=== PATIENT | female | born 1960 | race African-American/Black ===

== ENCOUNTER 2017-10-06 16:34 | Emergency (ER) | payer MEDICAID ==
[~2017-10-06] VITALS: Ht 167.6 cm; Wt 84.4 kg
[2017-10-06 17:02] VITALS: BP 173/82
[2017-10-06] MEDS ORDERED: Solu-MEDROL 125mg Inj IVP ONE (17:15)
[2017-10-06] MEDS ORDERED: Albuterol/Ipratropium 3ml neb HHN ONE ×3 (17:15→18:45)
[2017-10-06] MEDS ORDERED: IPRATROPIU0.2 MG/1 M HHN (19:26)
[2017-10-06] MEDS ORDERED: ALBUTEROL2.5 MG/3 M HHN (19:26)
[2017-10-06] MEDS ORDERED: PREDNISONE20 MG ORAL (19:26)
[2017-10-06 19:33] VITALS: BP 159/99
[2017-10-06 19:35] VITALS: BP 159/99
--- NOTE | 2017-10-06 22:51 | Emergency Room Report ---
History of Present Illness General Chief Complaint: Dyspnea/Respdistress Source: Patient Present Illness HPI The patient is a 57-year-old female who presented after increased difficulty breathing. Patient gradual onset of symptoms. Patient prior history of asthma. Patient reports having increased congestion for the past 3 days. She denies any fever. She had not been vomiting. She had increased nonproductive cough. Allergies: Coded Allergies: No Known Allergies (Unverified , 10/06/17) Patient History Past Medical History: see triage record Reviewed Nursing Documentation: PMH: Agreed; PSxH: Agreed Nursing Documentation-PMH Past Medical History: No History, Except For Hx Hypertension: Yes Hx Asthma: Yes Hx COPD: Yes Review of Systems All Other Systems: negative except mentioned in HPI Physical Exam Vital Signs Date Time Temp Pulse Resp B/P (MAP) Pulse Ox O2 Delivery O2 Flow Rate FiO2 10/06/17 16:52 98.1 112 20 173/82 93 Room Air 98.1 10/06/17 19:00 21 Sp02 EP Interpretation: reviewed, normal General Appearance: normal inspection, well appearing, no apparent distress, alert, GCS 15 Head: atraumatic ENT: normal ENT inspection, hearing grossly normal, normal voice Neck: normal inspection, full range of motion, supple, no bony tend Respiratory: normal inspection, no respiratory distress, no retraction, wheezing, expiration Cardiovascular #1: regular rate, rhythm, no edema Gastrointestinal: normal inspection, normal bowel sounds, non tender, soft, no guarding, no hernia Genitourinary: no CVA tenderness Musculoskeletal: normal inspection, back normal, normal range of motion Neurologic: normal inspection, alert, oriented x3, responsive, 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 Because of complexity imaging studies were ordered. Patient was given breathing treatments as well as steroids with improvement in her symptoms. The patient stated she felt better want to go home. Patient was given prescription for oral steroids as well as nebulizer solutions. The patient is advised to recheck with her primary care physician in one to 2 days. Patient is to return if she began having any worsening shortness of breath, dizziness, other concerns Last Vital Signs Date Time Temp Pulse Resp B/P (MAP) Pulse Ox O2 Delivery O2 Flow Rate FiO2 10/06/17 19:35 97.7 106 14 159/99 97 Room Air 97.7 10/06/17 19:00 21 Status: improved Disposition: HOME, SELF-CARE Condition: Stable Scripts Ipratropium [place] 0.5MG/2.5ML (IPRATROPIUM BROMIDE 0.5MG/2.5ML) 0.2 Mg/1 Ml Solution 0.5 MG HHN Q6H PRN for Shortness of Breath, #28 EA Prov: Augustus Alcantar MD 10/06/17 Albuterol Sulfate* (ALBUTEROL SULFATE HHN*) 2.5 Mg/3 Ml Vial.neb 2.5 MG HHN Q4H PRN for Shortness of Breath, #25 VIAL Prov: Augustus Alcantar MD 10/06/17 Prednisone* (PREDNISONE*) 20 Mg Tablet 60 MG ORAL DAILY, #12 TAB Prov: Augustus Alcantar MD 10/06/17 Patient Instructions: Chronic Obstructive Pulmonary Disease Exacerbation Augustus Alcantar MD October 06, 2017 22:51
--- NOTE | 2017-10-07 10:49 | Diagnostic Imaging Report ---
Indication: Dyspnea Comparison: None A single view chest radiograph was obtained. Findings: Cardiomediastinal appearance is within normal limits for age. Pulmonary vascularity is appropriate. The diaphragmatic contour is smooth and costophrenic angles are sharp. No pleural effusions are identified. The bones are unremarkable. Impression: No acute findings
--- NOTE | 2017-10-11 15:02 | Cardiology Report ---
APPROVED REPORT EKG Measurement Heart [id number] Sinus tachycardia Biatrial enlargement Abnormal ECG
== END 2017-10-06 19:35 | disposition home or self-care (01) ==
LOC: EMR 17:29
DX: J45.901 Unspecified asthma with (acute) exacerbation (principal); J44.9 Chronic obstructive pulmonary disease, unspecified; I10 Essential (primary) hypertension
CPT/HCPCS: 71045; 93005; 94640; 94664; 96374; 99284; J2930; J7620

== ENCOUNTER 2017-10-26 12:02 | Inpatient (IN) | payer MEDICAID ==
[~2017-10-26] VITALS: Ht 167.6 cm; Wt 88.0 kg
[~2017-10-26 12:02] MED LIST: ALBUTEROL2.5 MG/3 M HHN; IPRATROPIU0.2 MG/1 M HHN; PREDNISONE20 MG ORAL
[2017-10-26] MEDS ORDERED: Ipratropium 0.02% Inh Soln 2.5ml UD HHN ONE (12:15)
[2017-10-26] MEDS ORDERED: Acetaminophen 500mg (ES) tab ORAL ONE (12:15)
[2017-10-26] MEDS ORDERED: Solu-MEDROL 125mg Inj IVP ONE (12:15)
--- NOTE | 2017-10-26 12:17 | Emergency Room Report ---
History of Present Illness General Chief Complaint: Asthma Source: Patient Present Illness HPI Patient presents with severe asthma. She ran out of her inhaler however has a nebulizer at home. She's been using Atrovent without help. She had 2 breathing treatments before she came in. She denies any fever however she's been having a cough. There's been some yellow phlegm. She is using Advair discus also. This is not her worst attack. She's never been intubated. When she was here last month she almost needed to be admitted to the hospital and states she was worse than now. She complains of headache is 7/10. She has any chest pain, vomiting, diarrhea or dysuria. There is no calf swelling or pain. Allergies: Coded Allergies: No Known Allergies (Unverified , 10/06/17) Patient History Past Medical History: see triage record Social History: Denies: smoking Social History Narrative from home Reviewed Nursing Documentation: PMH: Agreed; PSxH: Agreed Nursing Documentation-PMH Past Medical History Deferred: Pt Cognitively Impaired Past Medical History: No History, Except For Hx Hypertension: Yes Hx Asthma: Yes Hx COPD: Yes Hx Cancer: Yes - breast CA; left mastectomy Review of Systems All Other Systems: negative except mentioned in HPI Physical Exam Vital Signs Date Time Temp Pulse Resp B/P (MAP) Pulse Ox O2 Delivery O2 Flow Rate FiO2 10/26/17 12:05 98.9 120 22 148/80 89 Room Air 99.0 Sp02 EP Interpretation: reviewed, abnormal - interpreted as low by me General Appearance: well appearing, no apparent distress, GCS 15 Head: normocephalic, atraumatic Eyes: bilateral eye normal inspection, bilateral eye PERRL ENT: normal pharynx, moist mucus membranes Neck: supple Respiratory: wheezing, expiration, inspiration, other - increased work of breathing Cardiovascular #1: regular rate, rhythm Cardiovascular #2: 2+ radial (R) Gastrointestinal: normal inspection, normal bowel sounds, non tender, no mass, non-distended Musculoskeletal: back normal, gait/station normal, normal range of motion, no calf tenderness, Sanjeev's Sign negative Neurologic: alert, oriented x3, grossly normal Psychiatric: mood/affect normal Skin: normal inspection, warm/dry Medical Decision Making Diagnostic Impression: Primary Impression: Asthma with status asthmaticus Qualified Codes: J45.52 - Severe persistent asthma with status asthmaticus Additional Impressions: UTI (urinary tract infection) Qualified Codes: N30.00 - Acute cystitis without hematuria Hypomagnesemia Eosinophilia ER Course The patient presents with dyspnea and wheezing after use of her own inhalers at home with a nebulizer. Differential includes pneumonia, asthma exacerbation, bronchitis, bronchospasm, PE amongst others. The patient be evaluated with an EKG, chest x-ray and labs. She'll be treated with Solu-Medrol and aggressive breathing treatments. Clinically, more bronchospasm than possible PE based on exam and history. Still wheezes after aggressive albuterol treatments. CXR clear. Labs with normal WBC but eos. Low magnesium. Pyuria. Mag given IV. Still hypoxic and wheezing. Epi and admission. Admit Dr. Cook. Laboratory Tests Test 10/26/17 12:30 10/26/17 14:45 White Blood Count 7.0 K/UL (4.8-10.8) Red Blood Count 4.62 M/UL (4.20-5.40) Hemoglobin 13.3 G/DL (12.0-16.0) Hematocrit 41.6 % (37.0-47.0) Mean Corpuscular Volume 90 FL (80-99) Mean Corpuscular Hemoglobin 28.9 PG (27.0-31.0) Mean Corpuscular Hemoglobin Concent 32.0 G/DL (32.0-36.0) Red Cell Distribution Width 13.7 % (11.6-14.8) Platelet Count 278 K/UL (150-450) Mean Platelet Volume 7.9 FL (6.5-10.1) Neutrophils (%) (Auto) 54.8 % (45.0-75.0) Lymphocytes (%) (Auto) 30.6 % (20.0-45.0) Monocytes (%) (Auto) 6.4 % (1.0-10.0) Eosinophils (%) (Auto) 6.4 % (0.0-3.0) H Basophils (%) (Auto) 1.9 % (0.0-2.0) Prothrombin Time 9.6 SEC (9.30-11.50) Prothrombin Time INR 0.9 (0.9-1.1) PTT 29 SEC (23-33) Sodium Level 141 MMOL/L (136-145) Potassium Level 3.6 MMOL/L (3.5-5.1) Chloride Level 103 MMOL/L (98-107) Carbon Dioxide Level 31 MMOL/L (21-32) Anion Gap 7 mmol/L (5-15) Blood Urea Nitrogen 9 mg/dL (7-18) Creatinine 0.8 MG/DL (0.55-1.30) Estimate Glomerular Filtration Rate > 60 mL/min (>60) Glucose Level 104 MG/DL (74-106) Calcium Level 9.5 MG/DL (8.5-10.1) Magnesium Level 1.7 MG/DL (1.8-2.4) L Total Bilirubin 0.4 MG/DL (0.2-1.0) Aspartate Amino Transferase (AST) 14 U/L (15-37) L Alanine Aminotransferase (ALT) 17 U/L (12-78) Alkaline Phosphatase 85 U/L (46-116) Troponin I 0.002 ng/mL (0.000-0.056) Pro-B-Type Natriuretic Peptide 7 pg/mL (0-125) Total Protein 7.7 G/DL (6.4-8.2) Albumin 3.3 G/DL (3.4-5.0) L Globulin 4.4 g/dL Albumin/Globulin Ratio 0.8 (1.0-2.7) L Urine Color Yellow Urine Appearance Clear Urine pH 6.5 (4.5-8.0) Urine Specific [place] 1.015 (1.005-1.035) Urine Protein 2+ (NEGATIVE) H Urine Glucose (UA) Negative (NEGATIVE) Urine Ketones Negative (NEGATIVE) Urine Occult Blood 1+ (NEGATIVE) H Urine Nitrite Negative (NEGATIVE) Urine Bilirubin Negative (NEGATIVE) Urine Urobilinogen Normal MG/DL (0.0-1.0) Urine Leukocyte Esterase 3+ (NEGATIVE) H Urine RBC Pending Urine WBC Pending Urine Squamous Epithelial Cells Pending Urine Bacteria Pending EKG Diagnostic Results Rate: tachycardiac ST Segments: no acute changes Rhythm Strip Diag. Results EP Interpretation: yes Rhythm: no PVC's, no ectopy, other - ST Chest X-Ray Diagnostic Results Chest X-Ray Diagnostic Results : Chest X-Ray Ordered: Yes # of Views/Limited/Complete: 1 View Interpretation: no consolidation, no effusion, no pneumothorax Impression: Other Electronically Signed by: Electronically signed by Refugio Mccall MD Last Vital Signs Date Time Temp Pulse Resp B/P (MAP) Pulse Ox O2 Delivery O2 Flow Rate FiO2 10/26/17 18:30 97.1 106 24 166/96 94 Room Air 21 97.1 Status: improved Disposition: ADMITTED INPATIENT Condition: Serious Refugio Mccall M.D. October 26, 2017 12:17
[2017-10-26 12:30] VITALS: BP 142/86
[2017-10-26] MEDS ORDERED: Ipratropium 0.02% Inh Soln 2.5ml UD ONE ×2 (12:41→13:32)
[2017-10-26 12:56] LABS: BASOPHILS % (AUTO) 1.9 % (0.0-2.0); EOSINOPHILS % (AUTO) 6.4 % (0.0-3.0); HEMATOCRIT 41.6 % (37.0-47.0); HEMOGLOBIN 13.3 G/DL (12.0-16.0); LYMPHOCYTES % (AUTO) 30.6 % (20.0-45.0); MEAN CORPUSCULAR VOLUME 90 FL (80-99); MONOCYTES % (AUTO) 6.4 % (1.0-10.0); NEUTROPHILS % (AUTO) 54.8 % (45.0-75.0); PLATELET COUNT 278 K/UL (150-450); RED BLOOD COUNT 4.62 M/UL (4.20-5.40); RED CELL DISTRIBUTION WIDTH 13.7 % (11.6-14.8)
[2017-10-26 13:03] LABS: INR 0.9 (0.9-1.1)
[2017-10-26 13:11] LABS: ANION GAP 7 mmol/L (5-15); BLOOD UREA NITROGEN 9 mg/dL (7-18); CALCIUM 9.5 MG/DL (8.5-10.1); CARBON DIOXIDE 31 MMOL/L (21-32); CHLORIDE 103 MMOL/L (98-107); CREATININE 0.8 MG/DL (0.55-1.30); POTASSIUM 3.6 MMOL/L (3.5-5.1); SODIUM 141 MMOL/L (136-145)
[2017-10-26 13:22] LABS: ALANINE AMINOTRANSFERASE 17 U/L (12-78); ALBUMIN 3.3 G/DL (3.4-5.0); ALBUMIN/GLOBULIN RATIO 0.8 (1.0-2.7); ALKALINE PHOSPHATASE 85 U/L (46-116); ASPARTATE AMINO TRANSFERASE 14 U/L (15-37); BILIRUBIN,TOTAL 0.4 MG/DL (0.2-1.0)
[2017-10-26] MEDS: Albuterol ud Inhalation HHN SCH ×3 (13:33→19:57)
[2017-10-26 13:41] VITALS: BP 143/88
--- NOTE | 2017-10-26 14:10 | Diagnostic Imaging Report ---
Indication: Dyspnea Comparison: 10/06/2017 A single view chest radiograph was obtained. Findings: Cardiomediastinal appearance is within normal limits for age. Pulmonary vascularity is appropriate. The diaphragmatic contour is smooth and costophrenic angles are sharp. No pleural effusions are identified. The bones are unremarkable. Impression: No acute findings
[2017-10-26] MEDS ORDERED: Albuterol ud Inhalation HHN ONE (14:45)
[2017-10-26 15:18] LABS: APPEARANCE,URINE CLEAR; BILIRUBIN, URINE NEGATIVE (NEGATIVE); GLUCOSE, URINE (UA) NEGATIVE (NEGATIVE); KETONES,URINE NEGATIVE (NEGATIVE); LEUKOCYTE ESTERASE ,URINE 3+ (NEGATIVE); NITRITE,URINE NEGATIVE (NEGATIVE); PH,URINE 6.5 (4.5-8.0); PROTEIN,URINE 2+ (NEGATIVE); UROBILINOGEN,URINE NORMAL MG/DL (0.0-1.0)
[2017-10-26 15:24] LABS: COLOR,URINE YELLOW
[2017-10-26] MEDS ORDERED: EPINEPHrine 1mg/1ml Amp IM ONE (15:45)
[2017-10-26] MEDS ORDERED: cefTRIAXone 1 GM in NS 55 ML IVPB ONE (15:45)
[2017-10-26] MEDS ORDERED: NORTRIPTYLINE H75 MG ORAL (17:20)
[2017-10-26] MEDS ORDERED: LISINOPRIL10 MG ORAL (17:20)
[2017-10-26 18:00] VITALS: BP 166/96
[2017-10-26] MEDS ORDERED: ADVAIR 100-501 EACH INH (18:51)
[2017-10-26] MEDS ORDERED: TRAZODONE HCL50 MG ORAL (18:51)
[2017-10-26] MEDS ORDERED: IBUPROFEN600 MG ORAL (18:51)
[2017-10-26 20:00] VITALS: BP 137/98
[2017-10-26] MEDS ORDERED: TraZODone 50mg tab ORAL PRN (20:30)
[2017-10-26] MEDS ORDERED: Albuterol/Ipratropium 3ml neb HHN PRN (20:30)
[2017-10-27] VITALS: BP 141/96
[2017-10-27] MEDS: Albuterol/Ipratropium 3ml neb HHN SCH ×7 (00:01→23:16)
--- NOTE | 2017-10-27 00:24 | History and Physical ---
History of Present Illness General Date patient seen: October 26, 2017 Time patient seen: 18:00 Reason for Hospitalization: Asthma Present Illness HPI 57 y/o female with a PMH of COPD and asthma presents for acute shortness of breath today. Patient was recently admitted 2-3 weeks ago for similar symptoms and was given a medrol-dose smita to finish. Patient states her asthma exacerbation resolved. However, patient states that recently she has been having productive cough with yellowish sputum, headaches, and myalgias for 4 days. Patient states that today she started having an asthma exacerbation and used her inhaler without relief. Patient was brought into the ED and was given IV mag, epinephrine, IV solumedrol, and several rounds of breathing treatments. Patient's wheezing improved but states that she continues to feel SOB. CXR was negative. Denies cp, n/v, f/c, abdominal pain. Allergies: Coded Allergies: No Known Allergies (Unverified , 10/06/17) Medication History Scheduled Fluticasone/Salmeterol (Advair 100-50 Diskus), 2 PUFFS INH DAILY, (Reported) Lisinopril* (Lisinopril*), 10 MG ORAL DAILY, (Reported) Nortriptyline Hcl (Nortriptyline Hcl), 75 MG ORAL DAILY, (Reported) Scheduled PRN Albuterol Sulfate* (Albuterol Sulfate Hhn*), 2.5 MG HHN Q4H PRN for Shortness of Breath Ibuprofen* (Motrin*), 800 MG ORAL Q8H PRN for For Pain, (Reported) Ipratropium [place] 0.5MG/2.5ML (Ipratropium [place] 0.5MG/2.5ML), 0.5 MG HHN Q6H PRN for Shortness of Breath Trazodone Hcl* (Desyrel*), 50 MG ORAL BEDTIME PRN for INSOMNIA, (Reported) Discontinued Medications Prednisone* (Prednisone*), 60 MG ORAL DAILY Discontinued Reason: Pt stopped taking med Patient History History Provided By: Patient Healthcare decision maker N Resuscitation status Full Code Advanced Directive on File Review of Systems All Other Systems: negative except mentioned in HPI Physical Exam Last 24 Hour Vital Signs Date Time Temp Pulse Resp B/P (MAP) Pulse Ox O2 Delivery O2 Flow Rate FiO2 10/26/17 20:00 96.2 116 18 137/98 92 Room Air 96.2 10/26/17 20:00 116 10/26/17 18:30 97.1 106 24 166/96 94 Room Air 21 97.1 10/26/17 18:00 97.1 106 24 166/96 94 Room Air 97.1 10/26/17 15:23 102 19 98 Room Air 21 10/26/17 15:10 111 24 92 Room Air 21 10/26/17 13:49 106 20 100 Room Air 21 10/26/17 13:45 97.1 10/26/17 13:41 97.1 105 16 143/88 100 Room Air 97.1 10/26/17 13:38 94 20 94 Room Air 21 10/26/17 12:55 112 20 94 21 10/26/17 12:47 115 20 94 Room Air 21 10/26/17 12:46 98.9 10/26/17 12:46 115 20 Room Air 21 10/26/17 12:30 115 17 Room Air 10/26/17 12:30 115 17 142/86 95 Room Air 10/26/17 12:05 98.9 120 22 148/80 89 Room Air 99.0 Intake and Output 10/26/17 10/27/17 19:00 07:00 Intake Total 100 ml Balance 100 ml Intake Oral 100 ml Laboratory Tests Test 10/26/17 12:30 10/26/17 14:45 10/26/17 20:20 White Blood Count 7.0 K/UL (4.8-10.8) Red Blood Count 4.62 M/UL (4.20-5.40) Hemoglobin 13.3 G/DL (12.0-16.0) Hematocrit 41.6 % (37.0-47.0) Mean Corpuscular Volume 90 FL (80-99) Mean Corpuscular Hemoglobin 28.9 PG (27.0-31.0) Mean Corpuscular Hemoglobin Concent 32.0 G/DL (32.0-36.0) Red Cell Distribution Width 13.7 % (11.6-14.8) Platelet Count 278 K/UL (150-450) Mean Platelet Volume 7.9 FL (6.5-10.1) Neutrophils (%) (Auto) 54.8 % (45.0-75.0) Lymphocytes (%) (Auto) 30.6 % (20.0-45.0) Monocytes (%) (Auto) 6.4 % (1.0-10.0) Eosinophils (%) (Auto) 6.4 % (0.0-3.0) H Basophils (%) (Auto) 1.9 % (0.0-2.0) Prothrombin Time 9.6 SEC (9.30-11.50) Prothromb Time International Ratio 0.9 (0.9-1.1) Activated Partial Thromboplast Time 29 SEC (23-33) Sodium Level 141 MMOL/L (136-145) Potassium Level 3.6 MMOL/L (3.5-5.1) Chloride Level 103 MMOL/L (98-107) Carbon Dioxide Level 31 MMOL/L (21-32) Anion Gap 7 mmol/L (5-15) Blood Urea Nitrogen 9 mg/dL (7-18) Creatinine 0.8 MG/DL (0.55-1.30) Estimat Glomerular Filtration Rate > 60 mL/min (>60) Glucose Level 104 MG/DL (74-106) Calcium Level 9.5 MG/DL (8.5-10.1) Magnesium Level 1.7 MG/DL (1.8-2.4) L Total Bilirubin 0.4 MG/DL (0.2-1.0) Aspartate Amino Transf (AST/SGOT) 14 U/L (15-37) L Alanine Aminotransferase (ALT/SGPT) 17 U/L (12-78) Alkaline Phosphatase 85 U/L (46-116) Troponin I 0.002 ng/mL (0.000-0.056) Pro-B-Type Natriuretic Peptide 7 pg/mL (0-125) Total Protein 7.7 G/DL (6.4-8.2) Albumin 3.3 G/DL (3.4-5.0) L Globulin 4.4 g/dL Albumin/Globulin Ratio 0.8 (1.0-2.7) L Urine Color Yellow Urine Appearance Clear Urine pH 6.5 (4.5-8.0) Urine Specific [place] 1.015 (1.005-1.035) Urine Protein 2+ (NEGATIVE) H Urine Glucose (UA) Negative (NEGATIVE) Urine Ketones Negative (NEGATIVE) Urine Occult Blood 1+ (NEGATIVE) H Urine Nitrite Negative (NEGATIVE) Urine Bilirubin Negative (NEGATIVE) Urine Urobilinogen Normal MG/DL (0.0-1.0) Urine Leukocyte Esterase 3+ (NEGATIVE) H Urine RBC 2-4 /HPF (0 - 2) H Urine WBC 5-10 /HPF (0 - 2) H Urine Squamous Epithelial Cells Few /LPF (NONE/OCC) Urine Bacteria Few /HPF (NONE) Arterial Blood pH 7.426 (7.350-7.450) Arterial Blood Partial Pressure CO2 42.1 mmHg (35.0-45.0) Arterial Blood Partial Pressure O2 81.1 mmHg (75.0-100.0) Arterial Blood HCO3 27.1 mmol/L (22.0-26.0) H Arterial Blood Oxygen Saturation 95.9 % (92.0-98.0) Arterial Blood Base Excess 20.4 Manuel Test Positive Height (Feet): 5 Height (Inches): 6.00 Weight (Pounds): 192 Medications Current Medications Medications (Trade) Dose Ordered Sig/Dipti Route PRN Reason Start Time Stop Time Status Last Admin Dose Admin Acetaminophen (Tylenol) 650 mg Q6H PRN ORAL Mild Pain/Temp > 100.5 10/26/17 20:30 11/25/17 20:29 10/26/17 21:20 Acetaminophen/ Hydrocodone Bitart ([place] 5/325) 1 tab Q4H PRN ORAL Moderate Pain (Pain Scale 4-6) 10/26/17 20:30 11/02/17 20:29 Albuterol/ Ipratropium (Albuterol/ Ipratropium) 3 ml Q4H PRN HHN Shortness of Breath 10/26/17 20:30 10/31/17 20:29 Albuterol/ Ipratropium (Albuterol/ Ipratropium) 3 ml Q4HRT HHN 10/26/17 23:00 10/31/17 22:59 10/27/17 00:01 Azithromycin (Zithromax) 500 mg DAILY ORAL 10/27/17 09:00 11/03/17 08:59 Lisinopril (Zestril) 10 mg DAILY ORAL 10/27/17 09:00 11/26/17 08:59 Nortriptyline HCl (Pamelor) 75 mg DAILY ORAL 10/27/17 09:00 6/30/18 08:59 Prednisone (predniSONE) 60 mg DAILY ORAL 10/27/17 09:00 11/26/17 08:59 Salmeterol Xinafoate/ Fluticasone (Advair 100/50 Diskus) 2 puffs DAILY INH 10/27/17 09:00 11/26/17 08:59 Sodium Chloride 1,000 ml @ 75 mls/hr [id number] IV 10/26/17 21:15 11/25/17 21:14 10/26/17 21:20 Trazodone HCl (Desyrel) 50 mg BEDTIME PRN ORAL Insomnia 10/26/17 20:30 11/25/17 20:29 Assessment/Plan Problem List: (1) Asthma exacerbation ICD Codes: J45.901 - Unspecified asthma with (acute) exacerbation SNOMED: 375940664 (2) Hypomagnesemia ICD Codes: E83.42 - Hypomagnesemia SNOMED: 942872744 (3) COPD (chronic obstructive pulmonary disease) ICD Codes: J44.9 - Chronic obstructive pulmonary disease, unspecified SNOMED: 73744290 Status: stable, progressing Assessment/Plan - Admit to inpatient - s/p IV solumedrol, IV mg, and epinephrine - start prednisone 60mg (D1/5) - start azithromycin 500mg (D1/5) - duonebs ATC + prn q4hr - ABGs - CXR negative - IVF - O2 to keep O2 sat > 92% - pain control and supportive care - continue home meds DVT ppx: SCD Full code Disposition: Home I spent a total of 74 minutes on this patient's case with greater than 50% spent on the care and coordination of this patient. Case was d/w patient, family , ED doc, and nursing staff. Dai Desouza NP October 27, 2017 00:24
[2017-10-27 04:00] VITALS: BP 134/84
[2017-10-27] MEDS: Norco 5mg/325mg tab ORAL PRN (05:57)
[2017-10-27 07:55] LABS: BASOPHILS % (AUTO) 0.3 % (0.0-2.0); HEMOGLOBIN 13.5 G/DL (12.0-16.0); MEAN CORPUSCULAR VOLUME 89 FL (80-99); MONOCYTES % (AUTO) 3.8 % (1.0-10.0); NEUTROPHILS % (AUTO) 83.9 % (45.0-75.0); PLATELET COUNT 273 K/UL (150-450); RED BLOOD COUNT 4.51 M/UL (4.20-5.40); RED CELL DISTRIBUTION WIDTH 13.2 % (11.6-14.8); WHITE BLOOD COUNT 9.4 K/UL (4.8-10.8)
[2017-10-27 08:00] VITALS: BP 140/113
[2017-10-27] MEDS: Lisinopril 10mg tab ORAL SCH (08:10)
[2017-10-27] MEDS: Nortriptyline 25mg cap ORAL SCH (08:11)
[2017-10-27 08:13] LABS: ANION GAP 9 mmol/L (5-15); BLOOD UREA NITROGEN 11 mg/dL (7-18); CALCIUM 9.1 MG/DL (8.5-10.1); CARBON DIOXIDE 27 MMOL/L (21-32); CHLORIDE 104 MMOL/L (98-107); CREATININE 0.6 MG/DL (0.55-1.30); POTASSIUM 4.2 MMOL/L (3.5-5.1); SODIUM 140 MMOL/L (136-145)
[2017-10-27] MEDS ORDERED: Azithromycin 250mg tab ORAL SCH (09:00)
[2017-10-27] MEDS: Advair 100/50 Inhaler - 14 dose INH SCH (09:21)
[2017-10-27] MEDS: Heparin 5000 units/ml inj SUBQ SCH ×2 (12:00→20:33)
[2017-10-27 12:06] VITALS: BP 139/93
[2017-10-27 16:00] VITALS: BP 129/86
--- NOTE | 2017-10-27 19:54 | General Progress Note ---
Assessment/Plan Problem List: (1) Asthma exacerbation ICD Codes: J45.901 - Unspecified asthma with (acute) exacerbation SNOMED: 447675719 (2) Hypomagnesemia ICD Codes: E83.42 - Hypomagnesemia SNOMED: 941302440 (3) COPD (chronic obstructive pulmonary disease) ICD Codes: J44.9 - Chronic obstructive pulmonary disease, unspecified SNOMED: 70525359 (4) Acute respiratory failure ICD Codes: J96.00 - Acute respiratory failure, unspecified whether with hypoxia or hypercapnia SNOMED: 25240573 (5) UTI (urinary tract infection) ICD Codes: N39.0 - Urinary tract infection, site not specified SNOMED: 83336631 Status: stable, progressing Assessment/Plan - s/p IV solumedrol, IV mg, and epinephrine - start prednisone 60mg (D2/) - levaquin 750mg (D1/) - duonebs ATC + prn q4hr - ABGs - CXR negative - IVF - O2 to keep O2 sat > 92% - pain control and supportive care - continue home meds - DC PLANNING IN AM DVT ppx: SCD Full code Disposition: Home I spent a total of 34 minutes on this patient's case with greater than 50% spent on the care and coordination of this patient. Case was d/w patient, family , and nursing staff. Subjective Date patient seen: October 27, 2017 Time patient seen: 11:00 Allergies: Coded Allergies: No Known Allergies (Unverified , 10/06/17) Subjective - doing well but still reports sob - denies chest pain, f/c Objective Last 24 Hour Vital Signs Date Time Temp Pulse Resp B/P (MAP) Pulse Ox O2 Delivery O2 Flow Rate FiO2 10/27/17 19:34 118 20 98 Nasal Cannula 2.0 28 10/27/17 19:24 96 Nasal Cannula 2.0 28 10/27/17 19:24 Nasal Cannula 2.0 28 10/27/17 19:23 115 20 96 Nasal Cannula 2.0 28 10/27/17 16:00 97.6 126 21 129/86 95 Nasal Cannula 2.0 97.6 10/27/17 16:00 130 10/27/17 14:54 111 20 97 Nasal Cannula 2.0 28 10/27/17 14:48 28 10/27/17 14:47 113 20 93 Nasal Cannula 2.0 28 10/27/17 12:06 97.5 113 21 139/93 97 Nasal Cannula 2.0 97.5 10/27/17 12:00 125 10/27/17 11:25 105 20 98 Nasal Cannula 2.0 28 10/27/17 11:20 28 10/27/17 11:19 103 20 97 Nasal Cannula 2.0 10/27/17 08:26 100 20 98 Nasal Cannula 2.0 10/27/17 08:15 101 20 97 Nasal Cannula 2.0 10/27/17 08:15 28 10/27/17 08:15 101 20 Nasal Cannula 2.0 10/27/17 08:10 134/84 10/27/17 08:00 97.2 107 19 140/113 96 Room Air 97.2 10/27/17 08:00 111 10/27/17 04:00 97.4 102 19 134/84 96 Room Air 97.4 10/27/17 04:00 106 10/27/17 03:51 115 18 97 Nasal Cannula 2.0 10/27/17 03:42 28 10/27/17 03:41 118 22 93 Nasal Cannula 2.0 10/27/17 00:00 96.6 104 20 141/96 95 Room Air 96.6 10/27/17 00:00 114 10/26/17 23:50 108 18 96 Nasal Cannula 2.0 10/26/17 23:40 113 20 95 Nasal Cannula 2.0 10/26/17 23:40 28 10/26/17 20:00 96.2 116 18 137/98 92 Room Air 96.2 10/26/17 20:00 116 Intake and Output 10/26/17 10/27/17 19:00 07:00 Intake Total 100 ml 965 ml Balance 100 ml 965 ml Intake Oral 100 ml 240 ml IV Total 725 ml # Voids 2 Laboratory Tests 10/26/17 20:20: Arterial Blood pH 7.426, Arterial Blood Partial Pressure CO2 42.1, Arterial Blood Partial Pressure O2 81.1, Arterial Blood HCO3 27.1H, Arterial Blood Oxygen Saturation 95.9, Arterial Blood Base Excess 20.4, Manuel Test Positive 10/27/17 05:25: White Blood Count 9.4, Red Blood Count 4.51, Hemoglobin 13.5, Hematocrit 40.0, Mean Corpuscular Volume 89, Mean Corpuscular Hemoglobin 29.9, Mean Corpuscular Hemoglobin Concent 33.7, Red Cell Distribution Width 13.2, Platelet Count 273, Mean Platelet Volume 7.6, Neutrophils (%) (Auto) 83.9H, Lymphocytes (%) (Auto) 12.0L, Monocytes (%) (Auto) 3.8, Eosinophils (%) (Auto) 0.0, Basophils (%) (Auto ) 0.3, Sodium Level 140, Potassium Level 4.2, Chloride Level 104, Carbon Dioxide Level 27, Anion Gap 9, Blood Urea Nitrogen 11, Creatinine 0.6, Estimat Glomerular Filtration Rate > 60, Glucose Level 145H, Calcium Level 9.1 Height (Feet): 5 Height (Inches): 6.00 Weight (Pounds): 194 General Appearance: alert, mild distress EENT: PERRL/EOMI, normal ENT inspection Neck: non-tender, normal alignment, supple Cardiovascular: normal peripheral pulses, normal rate, regular rhythm Respiratory/Chest: chest wall non-tender, expiratory wheezing, inspiratory wheezing Abdomen: normal bowel sounds, non tender, soft 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
[2017-10-27 20:00] VITALS: BP 132/74
[2017-10-28] VITALS: BP 131/75
[2017-10-28] MEDS ORDERED: Guaifenesin/DM 10ml syrup ORAL PRN (00:15)
[2017-10-28] MEDS: Albuterol/Ipratropium 3ml neb HHN SCH ×4 (03:20→14:38)
[2017-10-28 04:00] VITALS: BP 142/79
[2017-10-28 06:14] LABS: BASOPHILS % (AUTO) 0.9 % (0.0-2.0); EOSINOPHILS % (AUTO) 0.4 % (0.0-3.0); HEMATOCRIT 37.4 % (37.0-47.0); HEMOGLOBIN 12.8 G/DL (12.0-16.0); LYMPHOCYTES % (AUTO) 25.9 % (20.0-45.0); MEAN CORPUSCULAR VOLUME 89 FL (80-99); MONOCYTES % (AUTO) 6.5 % (1.0-10.0); NEUTROPHILS % (AUTO) 66.3 % (45.0-75.0); PLATELET COUNT 251 K/UL (150-450); RED CELL DISTRIBUTION WIDTH 13.7 % (11.6-14.8); WHITE BLOOD COUNT 10.4 K/UL (4.8-10.8)
[2017-10-28] MEDS: Norco 5mg/325mg tab ORAL PRN (06:24)
[2017-10-28 06:25] LABS: ANION GAP 8 mmol/L (5-15); BLOOD UREA NITROGEN 9 mg/dL (7-18); CALCIUM 9.1 MG/DL (8.5-10.1); CARBON DIOXIDE 30 MMOL/L (21-32); CHLORIDE 105 MMOL/L (98-107); CREATININE 0.7 MG/DL (0.55-1.30); POTASSIUM 3.5 MMOL/L (3.5-5.1); SODIUM 142 MMOL/L (136-145)
[2017-10-28 08:00] VITALS: BP 151/100
[2017-10-28] MEDS: Nortriptyline 25mg cap ORAL SCH (08:36)
[2017-10-28] MEDS: Lisinopril 10mg tab ORAL SCH (08:36)
[2017-10-28] MEDS: Heparin 5000 units/ml inj SUBQ SCH (08:37)
[2017-10-28] MEDS: Advair 100/50 Inhaler - 14 dose INH SCH (09:09)
[2017-10-28 12:00] VITALS: BP 145/94
[2017-10-28 16:00] VITALS: BP 133/77
[2017-10-28] MEDS ORDERED: DUONEB 0.5-3(2.53 ML HHN (16:00)
[2017-10-28] MEDS ORDERED: PREDNISONE20 MG ORAL (16:00)
[2017-10-28] MEDS ORDERED: PROVENTIL HFA6.7 G1 IH (16:00)
[2017-10-28] MEDS ORDERED: LEVAQUIN250 M1 ORAL (16:00)
[2017-10-28] MEDS ORDERED: LISINOPRIL20 MG ORAL (16:02)
--- NOTE | 2017-11-03 06:57 | Discharge Summary ---
Discharge Summary Hospital Course Date of Admission October 26, 2017 at 15:54 Date of Discharge Oct 28, 2017 at 16:42 Admitting Diagnosis status asthmaticus GEOVANNA Villa is a 57 year old female who was admitted on October 26, 2017 at 15:54 for Status Asthaticus 57 y/o female with a PMH of COPD and asthma presents for acute shortness of breath today. Patient was recently admitted 2-3 weeks ago for similar symptoms and was given a medrol-dose smita to finish. Patient states her asthma exacerbation resolved. However, patient states that recently she has been having productive cough with yellowish sputum, headaches, and myalgias for 4 days. Patient states that today she started having an asthma exacerbation and used her inhaler without relief. Patient was brought into the ED and was given IV mag, epinephrine, IV solumedrol, and several rounds of breathing treatments. Patient's wheezing improved but states that she continues to feel SOB. CXR was negative. Denies cp, n/v, f/c, abdominal pain. Consultations None Procedures None Hospital Course Patient was admitted given status asthmaticus. Patient was started on PO prednisone and levaquin for UTI. CXR was negative. Patient was also started on duonebs ATC and prn and given supplemental O2 to maintain O2 sat greater than 92 %. Patient was also noted to have elevated blood pressure throughout hospital course and lisinopril was increaed to 20mg qd. Patient was hemodynamically stable for discharge and acute status asthmaticus had resolved. Patient was discharged on PO prednisone and levaquin and nebulizers as well as a new dose for lisinopril. Patient was advised to f/u with PMD within1 week. 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 normal, no motor/sensory deficits, alert, oriented x 3 Skin: normal pigmentation, warm/dry Discharge Medications New Medications: Albuterol Sulfate (Proventil Hfa) 6.7 Gm Hfa.aer.ad 6.7 GM IH Q6HR PRN for 30 Days, #1 INH Lisinopril (Lisinopril*) 20 Mg Tablet 20 MG ORAL DAILY for 30 Days, #30 TAB Ipratropium/Albuterol Sulfate (DuoNeb 0.5-3(2.5)mg/3ml) 3 Ml Ampul.neb 3 ML HHN Q4H PRN for 30 Days, #1 EA Levofloxacin* (Levaquin*) 250 Mg Tablet 750 MG ORAL QHS for 3 Days, #3 TAB Prednisone* (Prednisone*) 20 Mg Tablet 60 MG ORAL DAILY for 3 Days, #3 TAB Continued Medications: Albuterol Sulfate* (Albuterol Sulfate Hhn*) 2.5 Mg/3 Ml Vial.neb 2.5 MG HHN Q4H PRN for Shortness of Breath, #25 VIAL Fluticasone/Salmeterol (Advair 100-50 Diskus) 1 Each Blst.w.dev 2 PUFFS INH DAILY (This prescription has been renewed) Ibuprofen* (Motrin*) 600 Mg Tablet 800 MG ORAL Q8H PRN for For Pain (This prescription has been renewed) Ipratropium [place] 0.5MG/2.5ML (Ipratropium [place] 0.5MG/2.5ML) 0.2 Mg/1 Ml Solution 0.5 MG HHN Q6H PRN for Shortness of Breath, #28 EA Lisinopril* (Lisinopril*) 10 Mg Tablet 10 MG ORAL DAILY, TAB (This prescription has been renewed) Trazodone Hcl* (Desyrel*) 50 Mg Tablet 50 MG ORAL BEDTIME PRN for INSOMNIA (This prescription has been renewed) Discontinued Medications: Nortriptyline Hcl (Nortriptyline Hcl) 75 Mg Capsule 75 MG ORAL DAILY Discharge Condition Upon Discharge: improving, stable Discharge Disposition Patient was discharged to Home (01) Discharge Diagnoses: (1) Asthma exacerbation (2) COPD (chronic obstructive pulmonary disease) (3) Acute respiratory failure (4) UTI (urinary tract infection) Dai Desouza NP Nov 03, 2017 06:57
--- NOTE | 2017-11-04 12:46 | Cardiology Report ---
APPROVED REPORT EKG Measurement Heart [id number] Sinus tachycardia Possible septal [place], age undet Abnormal ECG
== END 2017-10-28 16:42 | disposition home or self-care (01) | DRG 141 ==
LOC: EMR 13:02 → EDBEDREQ 15:45 → 2E 15:54 → EDBEDREQ 16:01 → 2E 18:23
DX: J45.901 Unspecified asthma with (acute) exacerbation (principal); J96.00 Acute respiratory failure, unspecified whether with hypoxia or hypercapnia; E83.42 Hypomagnesemia; N39.0 Urinary tract infection, site not specified; J45.909 Unspecified asthma, uncomplicated
CPT/HCPCS: 36415; 36600; 71045; 80048; 80053; 81003; 82803; 83735; 83880; 84484; 85025; 85610; 85730; 93005; 93970; 94640; 94664; 94760; 99285; J7620